=== PATIENT | male | born 1930 | race Caucasian/White ===

== ENCOUNTER 2016-08-01 17:52 | Inpatient (IN) | payer MEDICARE, OTHER ==
[~2016-08-01 17:52] MED LIST: ACETAMINOPHEN325 MG PO; AMITIZA8 MCG PO; CERTAGEN1 EACH PO; D-MANNOSE PO; DESLORATADINE5 M1 PO; DRISDOL50000 UNIT PO; DULCOLAX5 MG PO; EXELON 9.5MG9.5 MG TD; FEOSOL325 MG PO; FLOMAX0.4 MG PO; FLORINEF0.1 MG PO; FOLIC ACID1 M1 PO; LACTINEX1 EACH PO; LINZESS290 MCG PO; LOPRESSOR25 MG PO; MAALOX ADVANCE355 ML PO; MACROBID100 MG PO; MELATIN3 MG PO; MICRO-K10 MEQ PO; MILK OF MA400 MG/5 M PO; MIRTAZAPINE45 MG PO; NORVASC5 MG PO; PERCOCET 5/3251 TAB PO; PREDNISONE5 MG PO; PRILOSEC20 MG PO; PROSCAR5 MG PO; RISAMINE OINTM113 GM TOP; SENOKOT-S TABL1 EACH PO; SEROQUEL 25MG T25 MG PO; SINEMET 25-1001 EAC1 PO; SPIRIVA18 MCG INH; SYNTHROID25 MCG PO; WELLBUTRIN XL150 M1 PO; XARELTO10 MG PO; [UNRECOGNIZED DRUG - OTHER]
[2016-08-01 19:16] LABS: BASOPHIL 0.1 % (0-2); EOSINOPHIL 0 % (0-7); HGB 11.3 g/dl (13.2-18.0); MCH 28.5 pg (25.0-31.0); MCHC 32.3 g/dL (32.0-36.0); MCV 88.2 fL (78.0-100.0); MONOCYTE 4.8 % (0-12); MPV 9.2 fL (6.0-9.5); NEUTROPHIL 93.1 % (41-80); PLT 215 K/uL (150-400); RBC 3.97 M/uL (4.70-6.00); RDW 15.5 % (11.5-14.0)
[2016-08-01 19:17] LABS: WBC 23.3 K/uL (4.0-10.5)
[2016-08-01 19:20] LABS: INR 1.1 (0.9-1.2); PROTHROMBIN TIME 13.8 SECONDS (11.7-14.0)
[2016-08-01 19:21] LABS: D-DIMER 3.1 ug/mLFEU (0.00-0.41); PTT 31.2 SECONDS (23.2-31.4)
[2016-08-01 19:27] LABS: ALBUMIN 4.2 g/dL (3.4-4.8); BILIRUBIN - TOTAL 0.4 mg/dL (0.1-1.0); CREATININE 1.7 mg/dL (0.7-1.2); GLOBULIN (CALCULATION) 2.8 g/dL (2.2-4.2); MAGNESIUM 1.7 mg/dL (1.40-2.10); POTASSIUM 4.1 mmol/L (3.5-5.1)
[2016-08-01 19:29] LABS: CKMB 2.68 ng/mL (0.97-4.94); TROPONIN T 0.086 ng/mL
[2016-08-01 21:00] LABS: BILIRUBIN NEGATIVE (NEGATIVE); BLOOD TRACE-INTACT Ery/uL (NEGATIVE); CLARITY HAZY (CLEAR); COLOR YELLOW (YELLOW); GLUCOSE (U) NORMAL (NORMAL); KETONE (U) NEGATIVE (NEGATIVE); LEUKOCYTES 2+ Leu/uL (NEGATIVE); NITRITE NEGATIVE (NEGATIVE); PROTEIN TRACE (LOW) mg/dL (NEGATIVE); UROBILINOGEN 0.2 mg/dL (0.2-1.0); pH 5.5 (5.0-9.0)
[2016-08-01 21:12] LABS: BACTERIA 4+; URINARY RBC RARE; URINARY WBC TNTC
[2016-08-01 21:13] LABS: SQUAMOUS EPITHELIAL CELLS >50
[2016-08-02 04:15] LABS: BASOPHIL 0.1 % (0-2); EOSINOPHIL 0 % (0-7); HCT 33.4 % (42.0-52.0); HGB 10.8 g/dl (13.2-18.0); LYMPHOCYTE 2.4 % (15-48); MCH 28.4 pg (25.0-31.0); MCHC 32.3 g/dL (32.0-36.0); MCV 87.9 fL (78.0-100.0); MONOCYTE 0.5 % (0-12); MPV 9.7 fL (6.0-9.5); PLT 185 K/uL (150-400); RDW 15.6 % (11.5-14.0)
[2016-08-02 04:16] LABS: WBC 19.9 K/uL (4.0-10.5)
[2016-08-02 04:33] LABS: ALBUMIN 3.8 g/dL (3.4-4.8); BILIRUBIN - TOTAL 0.3 mg/dL (0.1-1.0); CKMB 4.03 ng/mL (0.97-4.94); CREATININE 1.3 mg/dL (0.7-1.2); GLOBULIN (CALCULATION) 3.1 g/dL (2.2-4.2); TOTAL PROTEIN 6.9 g/dL (6.4-8.3); TROPONIN T 0.043 ng/mL
[2016-08-02 10:02] LABS: CKMB 4.33 ng/mL (0.97-4.94); TROPONIN T 0.045 ng/mL
[2016-08-02 11:20] LABS: BILIRUBIN NEGATIVE (NEGATIVE); BLOOD TRACE-INTACT Ery/uL (NEGATIVE); CLARITY CLEAR (CLEAR); COLOR YELLOW (YELLOW); GLUCOSE (U) NORMAL (NORMAL); KETONE (U) NEGATIVE (NEGATIVE); LEUKOCYTES 1+ Leu/uL (NEGATIVE); NITRITE NEGATIVE (NEGATIVE); PROTEIN TRACE (LOW) mg/dL (NEGATIVE); UROBILINOGEN 0.2 mg/dL (0.2-1.0); pH 5.5 (5.0-9.0)
[2016-08-02 11:27] LABS: URINARY WBC 20-50
[2016-08-02 11:28] LABS: BACTERIA TRACE
[2016-08-03 04:37] LABS: BASOPHIL 0.2 % (0-2); EOSINOPHIL 0.9 % (0-7); HGB 9.9 g/dl (13.2-18.0); LYMPHOCYTE 15.8 % (15-48); MCH 28.4 pg (25.0-31.0); MCHC 31.9 g/dL (32.0-36.0); MCV 89.1 fL (78.0-100.0); MONOCYTE 8.4 % (0-12); MPV 9.5 fL (6.0-9.5); NEUTROPHIL 74.7 % (41-80); PLT 182 K/uL (150-400); RBC 3.48 M/uL (4.70-6.00); RDW 15.7 % (11.5-14.0); WBC 12.9 K/uL (4.0-10.5)
[2016-08-03 04:53] LABS: CREATININE 1.2 mg/dL (0.7-1.2); MAGNESIUM 1.59 mg/dL (1.40-2.10)
[2016-08-04 04:21] LABS: HGB 10.5 g/dl (13.2-18.0); MCHC 31.8 g/dL (32.0-36.0); MPV 9.6 fL (6.0-9.5); RBC 3.75 M/uL (4.70-6.00); RDW 15.7 % (11.5-14.0); WBC 12.3 K/uL (4.0-10.5)
[2016-08-05 04:02] LABS: BASOPHIL 0.2 % (0-2); EOSINOPHIL 4.9 % (0-7); HCT 30.8 % (42.0-52.0); LYMPHOCYTE 20.6 % (15-48); MCH 28.6 pg (25.0-31.0); MCHC 32.5 g/dL (32.0-36.0); MONOCYTE 6.9 % (0-12); MPV 9.4 fL (6.0-9.5); NEUTROPHIL 67.4 % (41-80); PLT 174 K/uL (150-400); RDW 15.6 % (11.5-14.0); WBC 9.6 K/uL (4.0-10.5)
[2016-08-05 04:23] LABS: CREATININE 1.1 mg/dL (0.7-1.2); POTASSIUM 3.9 mmol/L (3.5-5.1)
== END 2016-08-06 18:30 | DRG 698 ==
LOC: FER 17:52 → FTCU 22:28
PROVIDERS: Internal Medicine; ADMIT Internal Medicine Nephrology
DX: T83.518A Infection and inflammatory reaction due to other urinary catheter, initial encounter (principal); A41.9 Sepsis, unspecified organism; N17.9 Acute kidney failure, unspecified; E27.40 Unspecified adrenocortical insufficiency; A49.02 Methicillin resistant Staphylococcus aureus infection, unspecified site; S31.819A Unspecified open wound of right buttock, initial encounter; L08.9 Local infection of the skin and subcutaneous tissue, unspecified; I95.1 Orthostatic hypotension; R53.1 Weakness; N40.0 Benign prostatic hyperplasia without lower urinary tract symptoms; E03.9 Hypothyroidism, unspecified; G20 Parkinson's disease; F32.9 Major depressive disorder, single episode, unspecified; M48.00 Spinal stenosis, site unspecified; Z96.653 Presence of artificial knee joint, bilateral; Z87.891 Personal history of nicotine dependence; G89.29 Other chronic pain; M19.90 Unspecified osteoarthritis, unspecified site; J45.909 Unspecified asthma, uncomplicated; N31.9 Neuromuscular dysfunction of bladder, unspecified; N45.1 Epididymitis; L89.152 Pressure ulcer of sacral region, stage 2; R31.9 Hematuria, unspecified
CPT/HCPCS: 36415; 36600; 70450; 71010; 80048; 80053; 80202; 81001; 82550; 82553; 82803; 83605; 83735; 83874; 83880; 84145; 84484; 85025; 85379; 85610; 85730; 86403; 87040; 87070; 87076; 87077; 87088; 87186; 87205; 93005; 94010; 94640; 97110; 97163; 97167; 97530; 97530-GP; 97535; J0456; J1956; J2543; J2930; J3370

== ENCOUNTER 2016-10-22 17:11 | Emergency (ER) | payer OTHER ==
[2016-10-22 18:20] LABS: BASOPHIL 0.3 % (0-2); EOSINOPHIL 3.8 % (0-7); HCT 36.3 % (42.0-52.0); MCH 29.2 pg (25.0-31.0); MCHC 33.1 g/dL (32.0-36.0); MCV 88.3 fL (78.0-100.0); MONOCYTE 6.3 % (0-12); MPV 9.8 fL (6.0-9.5); NEUTROPHIL 72.6 % (41-80); PLT 256 K/uL (150-400); RBC 4.11 M/uL (4.70-6.00)
[2016-10-22 18:23] LABS: INR 0.97 (0.9-1.2); PROTHROMBIN TIME 12.5 SECONDS (11.7-14.0); PTT 28.1 SECONDS (23.2-31.4)
[2016-10-22 18:30] LABS: ALBUMIN 3.8 g/dL (3.4-4.8); BILIRUBIN - TOTAL 0.2 mg/dL (0.1-1.0); CREATININE 1.2 mg/dL (0.7-1.2); GLOBULIN (CALCULATION) 3.7 g/dL (2.2-4.2); POTASSIUM 4.4 mmol/L (3.5-5.1); TOTAL PROTEIN 7.5 g/dL (6.4-8.3)
[2016-10-22 18:33] LABS: BILIRUBIN NEGATIVE (NEGATIVE); BLOOD NEGATIVE Ery/uL (NEGATIVE); CLARITY CLEAR (CLEAR); COLOR YELLOW (YELLOW); GLUCOSE (U) NORMAL (NORMAL); KETONE (U) TRACE mg/dL (NEGATIVE); LEUKOCYTES 1+ Leu/uL (NEGATIVE); NITRITE NEGATIVE (NEGATIVE); PROTEIN TRACE (LOW) mg/dL (NEGATIVE); UROBILINOGEN 0.2 mg/dL (0.2-1.0)
[2016-10-22 18:36] LABS: URINARY WBC RARE
[2016-10-22 18:39] LABS: CKMB 2.72 ng/mL (0.97-4.94); TROPONIN T 0.033 ng/mL
== END 2016-10-22 21:00 | disposition home or self-care (01) ==
LOC: FER 17:11
PROVIDERS: Internal Medicine
DX: R55 Syncope and collapse (principal); R42 Dizziness and giddiness; I10 Essential (primary) hypertension; K21.9 Gastro-esophageal reflux disease without esophagitis; G20 Parkinson's disease; F02.80 Dementia in other diseases classified elsewhere, unspecified severity, without behavioral disturbance, psychotic disturbance, mood disturbance, and anxiety; N40.0 Benign prostatic hyperplasia without lower urinary tract symptoms; Z79.899 Other long term (current) drug therapy; Z86.14 Personal history of Methicillin resistant Staphylococcus aureus infection
CPT/HCPCS: 36415; 70450; 71010; 80053; 80061; 81001; 82550; 82553; 83874; 84484; 85025; 85610; 85730; 87040; 93005